=== PATIENT | male | born 1945 | race Caucasian/White ===

== ENCOUNTER 2019-09-07 05:12 | Inpatient (IN) | payer MEDICARE, OTHER ==
[~2019-09-07] VITALS: Ht 182.9 cm; Wt 121.3 kg
[2019-09-07] VITALS (17 sets, daily range): BP systolic 104–147; BP diastolic 58–81; PULSE 49–96; TEMP 98–98.8
[~2019-09-07 05:12] MED LIST: ALDACTONE 25MG25 M1 PO; AMARYL4 MG PO; ASPIRIN 81M81 MG/TA2 PO; BACTRIM DS 8001 TAB PO; COLACE 100100 MG/CAP PO; COREG 3.123.125 MG/T PO; DIABETA1.25 MG; FLOMAX 0.40.4 MG/CAP PO; FORTAMET500 MG PO; GLUCOPHAGE500 MG/TAB PO; HYGROTON 2525 MG/TAB PO; LIPITOR 40MG TA40 MG PO; LISINOPRIL PO; NIACIN500 M4 PO; NORCO 325 MG-51 TAB PO; OMEGA 31000 MG PO; PROSCAR 5MG5 MG PO; PYRIDIUM200 M1 PO; SILVADENE CREAM1 TU TP; TYLENOL 325MG325 MG PO; VITAMIN D 1001000 IU PO; ZESTRIL40 MG PO; ZOCOR PO; ZYLOPRIM 300MG300 MG PO; [UNRECOGNIZED DRUG - REMARK]
[2019-09-07 05:48] LABS: BASO # 0.1 (0.0-0.2); BASO % 0.4 % (0.0-2.0); EOS # 0.2 (0.0-0.7); EOS % 1.1 % (0-4.0); GRAN # 10.4 (1.4-6.5); HEMATOCRIT 49.6 % (42.0-52.0); HEMOGLOBIN 16.1 g/dl (13.5-18.0); LYMPH # 1.3 (1.2-3.4); LYMPH % 9.5 % (20.0-51.0); MEAN CELL VOLUME 95 fl (80.0-100.0); MEAN CORPUSCULAR HEMOGLOBIN 31 pg (27.0-31.0); MEAN CORPUSCULAR HGB CONC 33 g/dl (33.0-37.0); MEAN PLATELET VOLUME 9.4 fl (7.4-10.4); MONO # 1.4 (0.1-0.6); MONO % 10.7 % (1.7-9.3); PLATELET COUNT 144 K/mm3 (130-400); RED BLOOD COUNT 5.25 M/mm3 (4.20-5.60); REDCELL DISTRIBUTION WIDTH-CV 14.9 % (11.5-14.5)
[2019-09-07 05:54] LABS: INR 1.2 (0.8-3.0); PROTHROMBIN TIME 12.9 SECONDS (9.7-12.8)
[2019-09-07 05:56] LABS: ALBUMIN 4.2 gm/dL (3.5-5.0); BILIRUBIN,TOTAL 0.8 mg/dL (0.0-1.0); CALCIUM 9.4 mg/dL (8.4-10.2); CREATININE, serum 1.04 (0.66-1.25); POTASSIUM 4.7 mmol/L (3.4-5.0); TOTAL PROTEIN 7.4 gm/dL (6.4-8.2)
[2019-09-07 06:08] LABS: TROPONIN-I 0.014 ng/mL (0.000-0.035)
[2019-09-07] MEDS ORDERED: JARDIANCE25 PO (07:00)
[2019-09-07] MEDS ORDERED: ACTOS 15MG TAB15 MG PO (07:00)
--- NOTE | 2019-09-07 10:04 | NUR ---
SEE MERGE DOCUMENTATION FOR MEDICATION ADMINISTRATION TIMES AND INTRA/POST PROCEDURE SEDATION ASSESSMENTS.
--- NOTE | 2019-09-07 11:11 | NUR ---
PT RETURNED TO ROOM @1045 FROM [facility]. PT IS A/O X3 TR BAND WITH 12 ML OF AIR INFLATION. NO BLEEDING FROM SITE NOTED. VSS.
[2019-09-07] MEDS ORDERED: LEVEMIR100 U/ML SQ (11:35)
--- NOTE | 2019-09-07 12:41 | NUR ---
REMOVED 5 MLS OF AIR AND IMMEDIATE BLEEDING REPLACED 5 MLS AND CALLED TREKKING GUIDE FOR FURTHER INSTRUCTIONS. CLEANED AROUND SITE WITH STERILE SWABS.
--- NOTE | 2019-09-07 13:51 | NUR ---
REMOVED 2 MLS OF AIR FROM TRBAND. NO BLEEDING.
--- NOTE | 2019-09-07 14:26 | NUR ---
REMOVED TR BAND PT TOLERATED WELL. NO BLEEDING.
--- NOTE | 2019-09-07 19:44 | NUR ---
Call from fire control technician g about monitor with no rhythm. Patient sitting up in chair talking on phone. Day shift nurse reported cell phone interferes with monitor. Denies shortness of breath/pain/nausea. VS WNL. Will monitor.
--- NOTE | 2019-09-07 20:00 | NUR ---
Report received, assumed care for mini shifter. Assessment complete, VS stable. A&Ox3. Sitting up in chair watching TV. Denies shortness of breath/pain/nausea. States he feels better than yesterday. Plan of care discussed for NPO after midnight for EET/cardioversion. Verbalizes understanding. Call light in reach. Will monitor.
--- NOTE | 2019-09-07 22:30 | NUR ---
Late entry. [employer] unavailable due to software update. Bedside glucose complete but did not upload into the electronic medical record. Bedside glucose 103.
[2019-09-08] VITALS (18 sets, daily range): BP systolic 91–157; BP diastolic 38–77; PULSE 58–107; TEMP 97.6–99.2
--- NOTE | 2019-09-08 00:30 | NUR ---
PCT notified this nurse patient reporting pain when breathing. States he feels like he cant take a deep breath. Denies chest pain. VS WNL. Given IS with instruction on use. States "I have one of these at home I use when this happens." Used at this time. States he feels less short of breath. O2 saturation has been 94-96%. States he would like to sit in recliner. Assisted to chair-stand by. Tolerated well.
--- NOTE | 2019-09-08 01:51 | NUR ---
SItting up in chair sleeping. No s/s of distress noted. Respirations 16 not as shallow as before. WIll monitor.
--- NOTE | 2019-09-08 02:30 | NUR ---
Dr Mroeno notified of c/o shortness of breath and tightness from shoulder to shoulder after getting up to bathroom to void. Updated Dr Moreno on current vitals 141/77, pulse 81, 91% on room air resps 20. Denies chest pain. No new orders received. Will monitor.
--- NOTE | 2019-09-08 02:52 | NUR ---
Dr Moreno notified of converting to A-fib. No new orders received.
--- NOTE | 2019-09-08 05:51 | NUR ---
Rested in chair for most of night. States the pain from shoulder to shoulder is not as bad as long as he is sitting up. Discussed testing today-PHILL/Cardioversion. Verbalizes understanding. Tele showed A fib most of this shift with EKG reading the same. O2@1L/NC. States he wears CPAP at home. Denies nausea. Has shortness of breath with activity. Denies needs. Call light in reach.
[2019-09-08 07:06] LABS: BASO # 0.1 (0.0-0.2); BASO % 0.4 % (0.0-2.0); EOS # 0.1 (0.0-0.7); EOS % 0.5 % (0-4.0); GRAN # 11.7 (1.4-6.5); GRAN % 82.4 % (42.2-75.2); LYMPH % 7.2 % (20.0-51.0); MEAN CELL VOLUME 95 fl (80.0-100.0); MEAN CORPUSCULAR HEMOGLOBIN 31 pg (27.0-31.0); MEAN CORPUSCULAR HGB CONC 32 g/dl (33.0-37.0); MEAN PLATELET VOLUME 10.6 fl (7.4-10.4); MONO # 1.3 (0.1-0.6); MONO % 9.1 % (1.7-9.3); PLATELET COUNT 168 K/mm3 (130-400); RED BLOOD COUNT 5.54 M/mm3 (4.20-5.60); REDCELL DISTRIBUTION WIDTH-CV 15.1 % (11.5-14.5)
[2019-09-08 07:21] LABS: HEMATOCRIT 52.8 % (42.0-52.0)
[2019-09-08 07:27] LABS: CALCIUM 9.9 mg/dL (8.4-10.2); CREATININE, serum 1.03 (0.66-1.25); POTASSIUM 4.4 mmol/L (3.4-5.0)
--- NOTE | 2019-09-08 09:00 | NUR ---
Patient is off the floor for PHILL/Cardioversion. Consent signed and on the chart. He notified his . No other changes at this time. Call light within reach.
--- NOTE | 2019-09-08 11:00 | NUR ---
Patient is back from cardioversion at 1025. He is alert and oriented. Patient was brought up with amiodarone infusion finishing. Tele on. Patients vital signs are stable and documented. Post cardioversion EKG completed. Patient denies pain or nausea. Explained will also be giving an oral dose of amiodarone. No other changes at this time. Call light within reach.
[2019-09-08 15:02] LABS: COLLECTION METHOD CLEAN CATCH
[2019-09-08 15:10] LABS: MUCOUS Present /lpf; PH 5 (5-8); SQUAMOUS EPITHELIAL 0-2 /hpf; URINE APPEARANCE Clear; URINE BACTERIA None Seen /hpf; URINE BILIRUBIN Negative (NEGATIVE); URINE BLOOD Negative (NEGATIVE); URINE COLOR Yellow; URINE GLUCOSE 3+ (NEGATIVE); URINE KETONE Trace (NEGATIVE); URINE LEUKOCYTE ESTERASE Negative (NEGATIVE); URINE NITRATE Negative (NEGATIVE); URINE PROTEIN(semi-quant) Negative (NEGATIVE); URINE RBC 0-2 /hpf; URINE UROBILINOGEN Negative (NEGATIVE)
--- NOTE | 2019-09-08 15:44 | NUR ---
Intensivist met with patient to discuss discharge planning. Patient lives in [place], [place] with his Tori (ph#[phone]) and his son Deyvi (ph#[phone]). Patient sees Dr. Valdivia in [place] for primary care and obtains medications from [facility]. Patient uses a CPAP from [facility] and no other DME. Patient reports independence with ADLS and advised he does not have Advance Directives completed. Patient is not interested in designating DPOA-HC at this time. Patient plans to return home upon discharge. SW spoke with RN, Whit who advised patient has been independent in his room. SW will continue to follow for any discharge needs.
--- NOTE | 2019-09-08 18:30 | NUR ---
Patients blood pressure was a little low this afternoon. It is starting to pick back up. He has also been up more this afternoon. No other changes at this time. Call light within reach.
--- NOTE | 2019-09-08 20:30 | NUR ---
PT UP IN CHAIR AT BEDSIDE. IS [place], WEARS AIDE TO LEFT EAR. IS ALERT AND ORIENTED X4. RT WRIST BANDAID D/I POST HEART CATH. TAKES HS MEDS WITHOUT PROBLEM. INDEPENDENT IN ROOM. SL TO LEFT ARM FLUSHES WELL.
--- NOTE | 2019-09-08 23:08 | NUR ---
APPLIED OXYGEN AT 2L/NC, PT DID NOT BRING HIS CPAP MACHINE.
--- NOTE | 2019-09-09 02:00 | NUR ---
REPORT FROM GREENHOUSE LABORER, PT HR DROPS TO 30'S BUT NOT SUSTAINED. HR PRESENTLY 57.
[2019-09-09 03:41] VITALS: BP 93/61; PULSE 78; TEMP 97.8
--- NOTE | 2019-09-09 06:00 | NUR ---
Offers no concerns at this time.
[2019-09-09 06:28] LABS: BASO % 0.4 % (0.0-2.0); EOS # 0.2 (0.0-0.7); EOS % 2.1 % (0-4.0); GRAN # 7.5 (1.4-6.5); GRAN % 67.3 % (42.2-75.2); LYMPH # 1.8 (1.2-3.4); LYMPH % 16.5 % (20.0-51.0); MEAN CELL VOLUME 95 fl (80.0-100.0); MEAN CORPUSCULAR HEMOGLOBIN 31 pg (27.0-31.0); MEAN CORPUSCULAR HGB CONC 33 g/dl (33.0-37.0); MEAN PLATELET VOLUME 10.5 fl (7.4-10.4); MONO # 1.5 (0.1-0.6); MONO % 13.4 % (1.7-9.3); PLATELET COUNT 151 K/mm3 (130-400); RED BLOOD COUNT 4.84 M/mm3 (4.20-5.60); REDCELL DISTRIBUTION WIDTH-CV 14.8 % (11.5-14.5)
[2019-09-09 06:37] LABS: CALCIUM 9.4 mg/dL (8.4-10.2); CREATININE, serum 1.6 (0.66-1.25); POTASSIUM 4.5 mmol/L (3.4-5.0)
[2019-09-09 07:27] VITALS: BP 111/54; PULSE 65; TEMP 98.3
--- NOTE | 2019-09-09 08:15 | NUR ---
RA SPO2 SITTING UP IN CHAIR 87%. PLACED BACK ON 2 LPM NC 90%
[2019-09-09 11:08] VITALS: BP 112/60; PULSE 65; TEMP 97.9
--- NOTE | 2019-09-09 11:34 | NUR ---
First visit from the tax processor. No needs right now.
[2019-09-09 17:57] VITALS: BP 118/54; PULSE 57; TEMP 97.9
--- NOTE | 2019-09-09 18:01 | NUR ---
Patient has been doing well today. He is hoping to go home tomorrow. He is independent in the room. His heart rate continues to be regular and bradycardic. Dr Yoon is aware. No other changes at this time. Call light within reach.
--- NOTE | 2019-09-09 20:00 | NUR ---
PT UP IN CHAIR AT BEDSIDE. IS ALERT AND ORIENTED X3. [place]. HAS IVF INFUSING TO LEFT FOREARM WITHOUT PROBLEM. VOIDING PER URINAL IN BATHROOM. DENIES PAIN. TELEMETRY SHOWS SB. TAKES HS MEDS AND SNACK.
[2019-09-09 20:20] VITALS: BP 128/52; PULSE 54; TEMP 98.1
[2019-09-10 00:10] VITALS: BP 95/50; PULSE 60; TEMP 98.8
[2019-09-10 03:59] VITALS: BP 108/51; PULSE 52; TEMP 98.1
--- NOTE | 2019-09-10 06:00 | NUR ---
Pt had small clot in urinal this AM. Is on Eliquis. Has had IVF infusing all night with good urine output.
[2019-09-10 06:33] LABS: BASO % 0.3 % (0.0-2.0); EOS # 0.3 (0.0-0.7); EOS % 2.5 % (0-4.0); GRAN # 8.6 (1.4-6.5); GRAN % 72.9 % (42.2-75.2); HEMATOCRIT 46.8 % (42.0-52.0); HEMOGLOBIN 15.1 g/dl (13.5-18.0); LYMPH # 1.5 (1.2-3.4); LYMPH % 12.6 % (20.0-51.0); MEAN CELL VOLUME 95 fl (80.0-100.0); MEAN CORPUSCULAR HEMOGLOBIN 31 pg (27.0-31.0); MEAN CORPUSCULAR HGB CONC 32 g/dl (33.0-37.0); MEAN PLATELET VOLUME 10.7 fl (7.4-10.4); MONO # 1.3 (0.1-0.6); MONO % 11.3 % (1.7-9.3); PLATELET COUNT 145 K/mm3 (130-400); RED BLOOD COUNT 4.93 M/mm3 (4.20-5.60); REDCELL DISTRIBUTION WIDTH-CV 14.7 % (11.5-14.5)
[2019-09-10 06:39] LABS: CALCIUM 8.9 mg/dL (8.4-10.2); CREATININE, serum 1.44 (0.66-1.25); POTASSIUM 4.5 mmol/L (3.4-5.0)
[2019-09-10] MEDS ORDERED: ELIQUIS 5MG PO (07:02)
[2019-09-10] MEDS ORDERED: PACERONE400 MG PO (07:10)
--- NOTE | 2019-09-10 07:33 | NUR ---
Assessment completed, alert/oriented, vital signs stable, denies pain or discomfort, heart RRR/distal pulses are palpable, lungs CTA/ no resp.difficulty noted, his creat is down to 1.4 from 1.6 yesterday, he is not sitting up in the chair eating breakfast and hoping to be discharged home today, denies other needs at this time
[2019-09-10 08:36] VITALS: BP 113/40; PULSE 55; TEMP 97.8
--- NOTE | 2019-09-10 11:03 | NUR ---
Patient is discharging home, I have discussed discharge orders and instructions with him, instructed on new meds and all medication changes, scritps sent to pharmacy for him, discussed increased bleeding risk while on blood thinner, instructed to follow up with cardiology and PCP as scheduled, IV and tele removed, he will be leaving with his , I will escort him out the door when his ride arrives
== END 2019-09-10 12:14 | disposition home or self-care (01) | DRG 287 ==
LOC: COL.ER 05:12 → SURG 06:41
PROVIDERS: Emergency Medicine; Physician Assistant; ADMIT Hospitalist
PROC: 4A023N7 Measurement of Cardiac Sampling and Pressure, Left Heart, Percutaneous Approach (ICD-10-PCS; principal; 2019-09-07)
PROC: B2111ZZ Fluoroscopy of Multiple Coronary Arteries using Low Osmolar Contrast (ICD-10-PCS; 2019-09-07)
DX: R07.89 Other chest pain (principal); I48.92 Unspecified atrial flutter; I42.8 Other cardiomyopathies; N17.9 Acute kidney failure, unspecified; I25.10 Atherosclerotic heart disease of native coronary artery without angina pectoris; I10 Essential (primary) hypertension; E11.9 Type 2 diabetes mellitus without complications; M10.9 Gout, unspecified; E78.5 Hyperlipidemia, unspecified; N40.0 Benign prostatic hyperplasia without lower urinary tract symptoms; I27.20 Pulmonary hypertension, unspecified; Z79.84 Long term (current) use of oral hypoglycemic drugs
CPT/HCPCS: 99232-AI; 99239; C1769; G0378; J0282; J1644; J1815; J2250; J2270; J2704; J3010; J7030; J7060; Q9967

== ENCOUNTER 2020-02-01 10:07 | Day surgery (SDC) | payer MEDICARE, OTHER ==
[2008-08-30 03:59] VITALS: BP 111/60
[2020-02-01] VITALS (12 sets, daily range): BP systolic 124–141; BP diastolic 75–87; PULSE 48–78; TEMP 97.9–98.3
[~2020-02-01] VITALS: Ht 182.9 cm; Wt 117.7 kg
[~2020-02-01 10:07] MED LIST changes: +ACTOS 15MG TAB15 MG PO; +ELIQUIS 5MG PO; +JARDIANCE25 PO; +LEVEMIR100 U/ML SQ; +PACERONE400 MG PO
[2020-02-01 11:24] LABS: HEMATOCRIT 48.7 % (42.0-52.0); HEMOGLOBIN 15.8 g/dl (13.5-18.0); MEAN CELL VOLUME 94 fl (80.0-100.0); MEAN CORPUSCULAR HEMOGLOBIN 31 pg (27.0-31.0); MEAN CORPUSCULAR HGB CONC 32 g/dl (33.0-37.0); PLATELET COUNT 146 K/mm3 (130-400); RED BLOOD COUNT 5.16 M/mm3 (4.20-5.60)
[2020-02-01 11:29] LABS: INR 1.3 (0.8-3.0); PROTHROMBIN TIME 14.3 SECONDS (9.7-12.8)
[2020-02-01] MEDS ORDERED: ELIQUIS 5MG PO (11:31)
[2020-02-01 11:32] LABS: CALCIUM 9.4 mg/dL (8.4-10.2); CREATININE, serum 0.91 (0.66-1.25); POTASSIUM 4.1 mmol/L (3.4-5.0)
[2020-02-01] MEDS ORDERED: VITAMIN B11000 MCG/M IM (11:36)
[2020-02-01] MEDS ORDERED: EPA FISH OIL1 SGL PO ×2 (11:37→11:38)
[2020-02-01] MEDS ORDERED: VITAMIN D31000 IU PO (11:38)
[2020-02-01] MEDS ORDERED: TYLENOL 500MG500 MG PO (11:38)
[2020-02-01] MEDS ORDERED: ULTRAM 50MG TAB50 MG PO (11:39)
[2020-02-01] MEDS ORDERED: LASIX 40MG TABL40 MG PO (11:39)
[2020-02-01] MEDS ORDERED: DITROPAN XL10 MG PO (11:40)
[2020-02-01] MEDS ORDERED: GLUCOPHAGE XR500 M1 PO (11:41)
--- NOTE | 2020-02-01 12:03 | NUR ---
Pt to procedure at this time.report to Neto conroy.
--- NOTE | 2020-02-01 12:14 | NUR ---
SEE MERGE FOR ALL MEDICATION ADMINISTRATION TIMES, INTRA AND POST SEDATION ASSESSMENTS
[2020-02-02 04:23] VITALS: BP 128/74; PULSE 80; TEMP 98
--- NOTE | 2020-02-02 06:48 | NUR ---
PT A&O. RESTING IN BED. LT ARM SLING IN PLACE. INT NEEDLE FLUSHES WELL TO LT F/A. NEW ICE PACK TO LT CHEST AREA. LEHR STRIPPER TOOK PT OM WALK WITH MASK IN PLACE. REMINDED PT LT ARM PRECAUTIONS.
[2020-02-02 08:03] VITALS: BP 146/87; PULSE 108; TEMP 98
[2020-02-02 08:14] LABS: BASO % 0.3 % (0.0-2.0); EOS # 0.2 (0.0-0.7); EOS % 1.3 % (0-4.0); GRAN # 9.9 (1.4-6.5); HEMATOCRIT 52.3 % (42.0-52.0); HEMOGLOBIN 17.1 g/dl (13.5-18.0); LYMPH # 1.6 (1.2-3.4); LYMPH % 12.3 % (20.0-51.0); MEAN CELL VOLUME 94 fl (80.0-100.0); MEAN CORPUSCULAR HEMOGLOBIN 31 pg (27.0-31.0); MEAN CORPUSCULAR HGB CONC 33 g/dl (33.0-37.0); MEAN PLATELET VOLUME 10.7 fl (7.4-10.4); MONO # 1.1 (0.1-0.6); MONO % 8.9 % (1.7-9.3); PLATELET COUNT 142 K/mm3 (130-400); RED BLOOD COUNT 5.55 M/mm3 (4.20-5.60); REDCELL DISTRIBUTION WIDTH-CV 13.9 % (11.5-14.5)
[2020-02-02 08:21] LABS: CALCIUM 9.7 mg/dL (8.4-10.2); CREATININE, serum 0.86 (0.66-1.25); POTASSIUM 4.6 mmol/L (3.4-5.0)
--- NOTE | 2020-02-02 10:29 | NUR ---
PT UP TO RECLINER, ASSESSMENTS COMPLETE, VSS, DRESSING TO LEFT CHEST CDI WITH GAUZE OVER INCISION. PT LEFT ARM IN SLING. PT DENIES PAIN OR NEEDS AT THIS TIME. EATING AND DRINKING WITH NO N/V. PLAN ON DISCHARGE LATER TODAY.
[2020-02-02] MEDS ORDERED: COREG 6.256.25 MG/TA PO (10:50)
[2020-02-02] MEDS ORDERED: Patient's Own Medica PO (10:51)
[2020-02-02] MEDS ORDERED: CEPHALEXIN500 M1 PO (10:52)
--- NOTE | 2020-02-02 11:24 | NUR ---
PARI met with the patient to discuss discharge plan. The patient lives in [place] with his , Tori (ph#[phone]). He reports independence with ADLs and has a cane and walker. The patient's PCP is Dr. Eladio Valdivia and he receives his medications from [facility]. He reports occasional difficulties affording his meds. PARI informed him of GoodRx and provided him with two GoodRx cards. The patient does not have a DPOA-HC in EMR, but he states that his is working on getting one done for him. The patient plans to return home with his upon discharge today. No additional needs at this time.
--- NOTE | 2020-02-02 11:56 | NUR ---
First visit from the beater machine operator. No needs right now.
--- NOTE | 2020-02-02 14:20 | NUR ---
REVIEWED DISCHARGE INSTRUCTIONS WITH PT. QUESTIONS ANSWERED PT TAKEN OUT PER WHEEL CHAIR.
== END 2020-02-02 13:30 | disposition home or self-care (01) ==
LOC: COL.CAR 10:07 → JCC 15:30 → COL.CAR 02-02 13:30
PROVIDERS: Internal Medicine Cardiovascular Disease
DX: I42.0 Dilated cardiomyopathy (principal); I50.22 Chronic systolic (congestive) heart failure; I42.8 Other cardiomyopathies; I49.5 Sick sinus syndrome; I08.1 Rheumatic disorders of both mitral and tricuspid valves; I48.91 Unspecified atrial fibrillation; E78.5 Hyperlipidemia, unspecified; E11.9 Type 2 diabetes mellitus without complications; Z20.828 Contact with and (suspected) exposure to other viral communicable diseases; Z79.82 Long term (current) use of aspirin; Z79.899 Other long term (current) drug therapy; Z79.01 Long term (current) use of anticoagulants; Z79.84 Long term (current) use of oral hypoglycemic drugs
CPT/HCPCS: OP; C1769; C1777; C1882; C1894; C1898; C1900; J0690; J1815; J1940; J3010; J7030; Q9967

== ENCOUNTER 2020-03-05 10:02 | Day surgery (SDC) | payer MEDICARE, OTHER ==
[2008-08-30 03:59] VITALS: BP 111/60
[~2020-03-05] VITALS: Ht 182.9 cm; Wt 119.2 kg
[~2020-03-05 10:02] MED LIST changes: +CEPHALEXIN500 M1 PO; +COREG 6.256.25 MG/TA PO; +DITROPAN XL10 MG PO; +EPA FISH OIL1 SGL PO; +GLUCOPHAGE XR500 M1 PO; +LASIX 40MG TABL40 MG PO; +Patient's Own Medica PO; +TYLENOL 500MG500 MG PO; +ULTRAM 50MG TAB50 MG PO; +VITAMIN B11000 MCG/M IM; +VITAMIN D31000 IU PO
[2020-03-05 10:30] VITALS: BP 141/93; PULSE 82; TEMP 98.3
[2020-03-05 10:52] LABS: INR 1.7 (0.8-3.0); PROTHROMBIN TIME 18.7 SECONDS (9.7-12.8)
[2020-03-05 10:55] LABS: PARTIAL THROMBOPLASTIN TIME 45.2 SECONDS (26.0-37.0)
[2020-03-05 10:57] LABS: CALCIUM 9.3 mg/dL (8.4-10.2); CREATININE, serum 0.98 (0.66-1.25); MAGNESIUM 2.2 mg/dL (1.6-2.3); POTASSIUM 4.2 mmol/L (3.4-5.0)
[2020-03-05 11:15] LABS: HEMATOCRIT 49.1 % (42.0-52.0); HEMOGLOBIN 16.1 g/dl (13.5-18.0); MEAN CELL VOLUME 94 fl (80.0-100.0); MEAN CORPUSCULAR HEMOGLOBIN 31 pg (27.0-31.0); MEAN CORPUSCULAR HGB CONC 33 g/dl (33.0-37.0); MEAN PLATELET VOLUME 10.6 fl (7.4-10.4); PLATELET COUNT 121 K/mm3 (130-400); RED BLOOD COUNT 5.23 M/mm3 (4.20-5.60); REDCELL DISTRIBUTION WIDTH-CV 14.8 % (11.5-14.5)
[2020-03-05 11:28] LABS: THYROID STIMULATING HORMONE 5.79 uIU/mL (0.465-4.680)
[2020-03-05 11:40] VITALS: BP 123/63; PULSE 73
[2020-03-05] MEDS ORDERED: PACERONE400 MG PO (11:47)
[2020-03-05 11:55] VITALS: BP 121/79; PULSE 74
[2020-03-05 12:10] VITALS: BP 122/63; PULSE 75
[2020-03-05 12:25] VITALS: BP 120/85; PULSE 74
--- NOTE | 2020-03-05 12:35 | NUR ---
Pt has called to pick him up. He is changing into personal clothing, gait steady.
--- NOTE | 2020-03-05 14:10 | NUR ---
Pt assisted out to 's car by wheelchair. DC instructions were reviewed with pt, who expressed understanding. IV was DC'd with catheter intact, bleeding controlled at site. Pt has been on conference planner, with paced rhythm following cardioversion. He has tolerated PO without issue.
== END 2020-03-05 14:10 | disposition home or self-care (01) ==
LOC: COL.CAR 10:02
PROVIDERS: Internal Medicine Cardiovascular Disease
DX: I48.0 Paroxysmal atrial fibrillation (principal); I48.92 Unspecified atrial flutter; I42.8 Other cardiomyopathies; I49.5 Sick sinus syndrome; I11.0 Hypertensive heart disease with heart failure; I50.22 Chronic systolic (congestive) heart failure; Z20.828 Contact with and (suspected) exposure to other viral communicable diseases; E11.9 Type 2 diabetes mellitus without complications; G47.33 Obstructive sleep apnea (adult) (pediatric); I08.1 Rheumatic disorders of both mitral and tricuspid valves; M10.9 Gout, unspecified; Z79.01 Long term (current) use of anticoagulants; G51.0 Bell's palsy; Z79.899 Other long term (current) drug therapy; Z79.82 Long term (current) use of aspirin; Z79.4 Long term (current) use of insulin; Z95.810 Presence of automatic (implantable) cardiac defibrillator; N40.0 Benign prostatic hyperplasia without lower urinary tract symptoms
CPT/HCPCS: J0171; J2704; J7030